=== PATIENT | male | born 1970 | race Caucasian/White ===

== ENCOUNTER 2025-06-12 10:14 | Emergency (ER) | payer MEDICAID ==
[2025-06-12] MEDS: Ketorolac 30 MG/ML SDV IM ONE (12:33)
== END 2025-06-12 15:16 | disposition home or self-care (01) ==
LOC: JP.ED 10:14
DX: S32.302A Unspecified fracture of left ilium, initial encounter for closed fracture (principal); Z79.899 Other long term (current) drug therapy; Z88.5 Allergy status to narcotic agent; Z88.0 Allergy status to penicillin; Z91.041 Radiographic dye allergy status; W01.0XXA Fall on same level from slipping, tripping and stumbling without subsequent striking against object, initial encounter
CPT/HCPCS: 72192; 73502; 76377; 96372; 99284; J1885